=== PATIENT | male | born 1960 | race Caucasian/White ===

== ENCOUNTER 2018-05-08 08:32 | Inpatient (IN) | payer BC ==
[2018-05-08] MEDS ORDERED: ACETAMINOPHEN 1000 MG/100 ML VIAL (NON FORMULARY) IVPB ONE (08:47)
[2018-05-08] MEDS ORDERED: SODIUM CHLORIDE 1,000 ML IV STA (08:47)
[2018-05-08] MEDS ORDERED: ONDANSETRON 4 MG/2 ML VIAL IVPB ONE ×2 (08:48→12:44)
--- NOTE | 2018-05-08 08:48 | PDOC ---
History of Present Illness - General Chief Complaint: Pain Stated Complaint: ABD PAIN Time Seen by Provider: 05/08/18 08:42 - History of Present Illness Initial Comments: 05/08/18 08:47 57 yo M with no significant pmh who p/w LLQ abdominal pain. Patient with acute onset of crampy, unremitting, non radiating, severe LLQ abdominal pain beginning at 0700 AM (05/08/18) following BM. Denies BPR. No identifiable triggers or alleviators. Endorses two episodes of non-bilious, non bloody emesis. Milk of Magnesia with no relief in symptoms. Patient denies F,C, CP, SOB, urinary complaints, hematuria, diarrhea, constipation, lightheadedness, weakness, sensory changes. PMHx: as noted above. Denies h/o abdominal surgery. ROS: as noted SHx: Denies tobacco, IVDA. Social Etoh. Allergies: NKDA Past History - Past Medical History Allergies/Adverse Reactions: Allergies Allergy/AdvReac Type Severity Reaction Status Date / Time No Known Allergies Allergy Verified 05/08/18 08:34 Home Medications: Ambulatory Orders Ibuprofen [Motrin -] 600 mg PO QID PRN #20 tablet 05/08/18 Ondansetron [Zofran Odt -] 4 mg SL TID PRN #9 od.tablet 05/08/18 Oxycodone HCl 10 mg PO QID PRN #12 tablet MDD 4 05/08/18 COPD: No DVT: No - Suicide/Smoking/Psychosocial Hx Smoking History: Never smoked Information on smoking cessation initiated: No Hx Alcohol Use: No Drug/Substance Use Hx: No Substance Use Type: None Review of Systems - Review of Systems Comments:: 05/08/18 09:18 GENERAL/CONSTITUTIONAL: No fever or chills. No weakness. HEAD, EYES, EARS, NOSE AND THROAT: No change in vision. No ear pain or discharge. No sore throat. CARDIOVASCULAR: No chest pain or shortness of breath RESPIRATORY: No cough, wheezing, or hemoptysis. GASTROINTESTINAL: + abdominal pain and nausea, vomitin. No diarrhea or constipation. GENITOURINARY: No dysuria, frequency, or change in urination. MUSCULOSKELETAL: No joint or muscle swelling or pain. No neck or back pain. SKIN: No rash NEUROLOGIC: No headache, vertigo, loss of consciousness, or change in strength/ sensation. ENDOCRINE: No increased thirst. No abnormal weight change HEMATOLOGIC/LYMPHATIC: No anemia, easy bleeding, or history of blood clots. ALLERGIC/IMMUNOLOGIC: No hives or skin allergy. *Physical Exam - Vital Signs Last Vital Signs Temp Pulse Resp BP Pulse Ox 98.0 F 69 18 154/90 100 05/08/18 08:35 05/08/18 08:35 05/08/18 08:35 05/08/18 08:35 05/08/18 08:35 - Physical Exam Comments: 05/08/18 09:18 GENERAL: Awake, alert, and fully oriented, in no acute distress HEAD: No signs of trauma, normocephalic, atraumatic EYES: PERRLA, EOMI, sclera anicteric, conjunctiva clear ENT: Hearing grossly normal, nares patent, oropharynx clear without exudates. Moist mucosa NECK: Normal ROM, supple, no lymphadenopathy, JVD, or masses LUNGS: No distress, speaks full sentences, clear to auscultation bilaterally HEART: Regular rate and rhythm, normal S1 and S2, no murmurs, rubs or gallops, peripheral pulses normal and equal bilaterally. ABDOMEN: + LLQ ttp. Soft, normoactive bowel sounds. No guarding, no rebound. No masses EXTREMITIES : Normal inspection, Normal range of motion, no edema. No clubbing or cyanosis. SKIN: Warm, Dry, normal turgor, no rashes or lesions noted ED Treatment Course - LABORATORY CBC & Chemistry Diagram: 05/08/18 08:52 05/08/18 08:52 Medical Decision Making - Medical Decision Making 05/08/18 09:10 57 yo M with no significant pmh who p/w LLQ abdominal pain. VSS, AF, + LLQ ttp. Will consider diverictulitis, colitis, cystitis, nephrolithiasis. Low suspicion SBO, AAA, Ao dissection. ED Course: CBC,CMP, UA Tylenol 1000 mg, NS 1 L, Morphine 4 mg, Zofran 4 mg 05/08/18 10:40 Bedside U/S with left sided moderate hydronephrosis. 05/08/18 10:41 UA: 1 + Blood, 28 RBC CBC,CMP: Unremarkable Patient vomiting medication (Oxycodone) 05/08/18 15:14 CT AP: 5 mm obstructing calculus at left UVJ Contacted Dr. [facility] automotive professional answering service. Awaiting call back. 05/08/18 16:[address] Thomson, and agrees with admission. Kayla Lora g. 05/08/18 16:42 Patient to be admitted to med/surg. 05/08/18 17:[address] Corley Med/surg. *DC/Admit/Observation/Transfer Diagnosis at time of Disposition: Calculus of left kidney - Discharge Dispostion Condition at time of disposition: Stable Decision to Admit order: Yes - Prescriptions - Referrals - Patient Instructions - Post Discharge Activity - Attestations Physician Attestion: 05/08/18 09:19 I attest to the information provided in this note.
[2018-05-08] MEDS ORDERED: ACETAMINOPHEN INJECTION 100 ML IVPB ONE (08:49)
[2018-05-08] MEDS ORDERED: ONDANSETRON 4 MG/2 ML VIAL ONE ×3 (08:49→17:22)
[2018-05-08] MEDS ORDERED: morphine SULFATE 4 MG/ML VIAL ONE (08:57)
[2018-05-08 09:00] LABS: BASO % 1.2 % (0-2.0); EOS % 1.6 % (0-4.5); HEMATOCRIT 46.5 % (35.4-49); HEMOGLOBIN 15.8 GM/dL (11.7-16.9); LYMPH % 25.3 % (8-40); MCH 30.2 pg (25.7-33.7); MEAN PLT VOLUME 9.2 fl (7.5-11.1); MONO % 5.7 % (3.8-10.2); NEUT % 66.2 % (42.8-82.8); PLATELET COUNT 240 K/MM3 (134-434); RBC 5.23 M/mm3 (4.00-5.60); RDW 13.1 % (11.9-15.9); WHITE BLOOD COUNT 5.5 K/mm3 (4.0-10.0)
[2018-05-08] MEDS ORDERED: KETOROLAC TROMETHAMINE 15 MG/ML VIAL IVPUSH ONE (09:05)
--- NOTE | 2018-05-08 09:05 | PDOC ---
Attending Attestation - HPI HPI: Noah Braxton is a 57-year-old male with no reported past medical history presents to the emergency department with abdominal pain since earlier today. The patient presents with localized pain to the LLQ, accompanied by nausea and emesis 2x. Patients significant other at bedside states patient had suspicious food intake at a birthday libertarian last night. ROS is positive for Nausea, vomiting, fever. ROS negative for prior similar incident Diarrhea, hematemesis, melena, hematochezia. Surgical history: Back and Knee Surgery. PCP: Keegan Chiang. - Physicial Exam PE: 05/08/18 10:25 NAD, well appearing, dry mucus membranes, nl conjunctiva, anicteric; neck supple. lungs clear, RRR, abdomen soft, +LLQ tenderness, mild Left CVAT. ROJAS x4 , no focal neuro deficits. No peripheral edema. normal color for ethnicity, WWP. - Medical Decision Making 05/08/18 10:26 Documentation prepared by Vicki Ennis, acting as esthetician and manager medical spa for Dana Terry MD. <Vicki Ennis - Last Filed: 05/08/18 10:21> - Resident Resident Name: Lew Hou - ED Attending Attestation I have performed the following: I have examined & evaluated the patient, The case was reviewed & discussed with the resident, I agree w/resident's findings & plan - Medical Decision Making 05/08/18 10:14 Coleen 57 yo M with no significant pmh who p/w LLQ abdominal pain. Patient with acute onset of crampy, severe flank and LLQ abdominal pain beginning at 0700 AM this morning, a/w n/v. No f/c, urinary sx or hematuria or testicular pain. + suspicious food intake yesterday at birthday libertarian. DDx abdominal pain: biliary colic, renal colic, GERD, PUD, esophageal spasm, pancreatitis, hepatitis, colitis, food poisoning/gastroenteritis, hernia, appendicitis, diverticulitis Vital signs reviewed, wnl. no fever laboratory results and imaging reviewed, basic labs and lytes wnl, notable for normal wbc ct and Cr, UA with +RBCs, c/w passing stone. no infection on UA, no abx indicated.. EKG normal sinus rhythm, no interval abnormalities, narrow QRS, ST and T wave segments and morphology normal. ED course: POCUS renal with mild left hydronephrosis, right urinary jet, left jet not visualized. findings c/w first time renal colic/ureterolithiasis presentation. given toradol, tylenol, morphine, antiemetics and IVF. CT qiana, first time kidney stone, also r/o alternative intra abdominal etiology /pathology such as diverticulitis/colitis. CT renal with left hydro and 5mm obstructing UVJ stone. no other intra abdominal pathology. multiple nephrolithiasis present. attempts at oral meds, unable to tolerate. urology cs with Dr. Barksdale, given obstructive findings, admit for close monitoring. pt and family made aware, agreeable. Dispo: admit for ureterolithiasis, pain control, hydration as unable to victoriano PO without difficulty. urology cs called, to follow. 05/08/18 16:46 05/08/18 16:48 <Dana Terry - Last Filed: 05/08/18 16:49> Procedures - Bedside Ultrasound Remarks: 05/08/18 10:18 POCUS renal exam performed, indication includes abdominal/flank pain. views obtained: bilateral kidneys in short and long axis, bladder. findings: +mild left hydronephrosis; normal right kidney w/o hydronephrosis. bladder full with right ureteral jet. no left ureteral jet visualized.. Impression: +mild left hydronephrosis. 05/08/18 16:46 <Dana Terry - Last Filed: 05/08/18 16:49>
[2018-05-08] MEDS ORDERED: KETOROLAC TROMETHAMINE 15 MG/ML VIAL ONE (09:09)
[2018-05-08] MEDS ORDERED: morphine CARPU-JECT 4 MG/1 ML DISP.SYRIN IVPUSH ONE ×2 (09:09→13:57)
[2018-05-08 09:35] LABS: ALBUMIN 4.3 g/dl (3.4-5.0); ALK PHOS 91 U/L (45-117); ANION GAP 11 MMOL/L (8-16); BILIRUBIN,TOTAL 0.7 mg/dL (0.2-1); BLOOD UREA NITROGEN 24 mg/dL (7-18); CALCIUM 9.8 mg/dL (8.5-10.1); CHLORIDE 101 mmol/L (98-107); CO2 26 mmol/L (21-32); CREATININE 1.1 mg/dL (0.55-1.3); GLUCOSE,RANDOM 150 mg/dL (74-106); POTASSIUM 4.3 mmol/L (3.5-5.1); SGOT/AST 30 U/L (15-37); SGPT/ALT 31 U/L (13-61); SODIUM 138 mmol/L (136-145)
[2018-05-08 10:00] LABS: URINE APPEARANCE CLEAR; URINE BILIRUBIN NEGATIVE (<2.0 mg/dL); URINE COLOR YELLOW; URINE GLUCOSE (UA) NEGATIVE (NEGATIVE); URINE KETONE NEGATIVE (NEGATIVE); URINE LEUK ESTERASE NEGATIVE (NEGATIVE); URINE NITRITE NEGATIVE (NEGATIVE); URINE PROTEIN NEGATIVE (NEGATIVE); URINE UROBILINOGEN NEGATIVE mg/dL (0.2-1.0)
[2018-05-08] MEDS ORDERED: oxyCODONE HCL 5 MG TABLET PO ONE (12:44)
[2018-05-08] MEDS ORDERED: oxyCODONE HCL 10 MG SUSTAINED ACTING TABLET ONE (13:19)
[2018-05-08] MEDS ORDERED: MORPHINE SULFATE 10 MG/1 ML *VIAL ONE (14:09)
[2018-05-08] MEDS ORDERED: CEFTRIAXONE 1 GM/50 ML BAG ONE (16:31)
[2018-05-08] MEDS ORDERED: ONDANSETRON 4 MG/2 ML VIAL IVPUSH ONE (17:15)
[2018-05-08] MEDS ORDERED: morphine CARPU-JECT 2 MG/1 ML DISP.SYRIN IVPUSH ONE (17:15)
[2018-05-08] MEDS ORDERED: MORPHINE SULFATE 2 MG/ML VIAL ONE (17:21)
[2018-05-08] MEDS ORDERED: ACETAMINOPHEN 1000 MG/100 ML VIAL (NON FORMULARY) IVPB PRN (18:00)
[2018-05-08] MEDS ORDERED: morphine CARPU-JECT 4 MG/1 ML DISP.SYRIN IVPUSH PRN (18:01)
[2018-05-08] MEDS ORDERED: MORPHINE SULFATE 2 MG/ML VIAL IVPUSH PRN (18:02)
--- NOTE | 2018-05-08 19:28 | HP ---
CHIEF COMPLAINT: Left flank and LLQ pain PCP: Dr. Keegan Carr HISTORY OF PRESENT ILLNESS: 57 year-old male with no significant reported PMH presented to the ED with LLQ pain since earlier in the day. Patient reported associated nausea and vomiting x 2, and subjective fever. ER course was notable for: (1) UA: 28 RBCs (2) CTAP: 5mm obstructing calculus left UVJ Recent Travel: No PAST MEDICAL HISTORY: None reported PAST SURGICAL HISTORY: Lumbar herniated disc repair 1985 Bilateral knee arthroscopy 2008 Partial thyroidectomy as child Social History: Smoking: no Alcohol: no Drugs: no Family History: Allergies No Known Allergies Allergy (Verified 05/08/18 08:34) HOME MEDICATIONS: Home Medications Medication Instructions Recorded Ibuprofen [Motrin -] 600 mg PO QID PRN #20 tablet 05/08/18 Ondansetron [Zofran Odt -] 4 mg SL TID PRN #9 od.tablet 05/08/18 Oxycodone HCl 10 mg PO QID PRN #12 tablet MDD 4 05/08/18 REVIEW OF SYSTEMS CONSTITUTIONAL: +fever Absent: fever, chills, diaphoresis, generalized weakness, malaise, loss of appetite, weight change HEENT: Absent: rhinorrhea, nasal congestion, throat pain, throat swelling, difficulty swallowing, mouth swelling, ear pain, eye pain, visual changes CARDIOVASCULAR: Absent: chest pain, syncope, palpitations, irregular heart rate, lightheadedness , peripheral edema RESPIRATORY: Absent: cough, shortness of breath, dyspnea with exertion, orthopnea, wheezing, stridor, hemoptysis GASTROINTESTINAL: +nausea, vomiting Absent: abdominal pain, abdominal distension, nausea, vomiting, diarrhea, constipation, melena, hematochezia GENITOURINARY: +left flank and LLQ pain Absent: dysuria, frequency, urgency, hesitancy, hematuria, genital pain MUSCULOSKELETAL: Absent: myalgia, arthralgia, joint swelling, back pain, neck pain SKIN: Absent: rash, itching, pallor HEMATOLOGIC/IMMUNOLOGIC: Absent: easy bleeding, easy bruising, lymphadenopathy, frequent infections ENDOCRINE: Absent: unexplained weight gain, unexplained weight loss, heat intolerance, cold intolerance NEUROLOGIC: Absent: headache, focal weakness or paresthesias, dizziness, unsteady gait, seizure, mental status changes, bladder or bowel incontinence PSYCHIATRIC: Absent: anxiety, depression, suicidal or homicidal ideation, hallucinations. PHYSICAL EXAMINATION Vital Signs - 24 hr 05/08/18 05/08/18 05/08/18 08:35 15:48 18:06 Temperature 98.0 F 98.1 F Pulse Rate 69 Pulse Rate [ 83 97 H Apical] Respiratory 18 18 18 Rate Blood Pressure 154/90 Blood Pressure 142/93 132/87 [Left Arm] O2 Sat by Pulse 100 99 98 Oximetry (%) GENERAL: Awake, alert, and fully oriented, in mild distress secondary to left flank and LLQ pain. HEAD: Normal with no signs of trauma. EYES: Pupils equal, round and reactive to light, extraocular movements intact, sclera anicteric, conjunctiva clear. No lid lag. EARS, NOSE, THROAT: Ears normal, nares patent, oropharynx clear without exudates. Moist mucous membranes. NECK: Normal range of motion, supple without lymphadenopathy, JVD, or masses. LUNGS: Breath sounds equal, clear to auscultation bilaterally. No wheezes, and no crackles. No accessory muscle use. HEART: Regular rate and rhythm, S1 and S2 ABDOMEN: Soft, LLQ tenderness, not distended, no guarding, no rebound MUSCULOSKELETAL: Normal range of motion at all joints. No bony deformities or tenderness. No CVA tenderness. UPPER EXTREMITIES: 2+ pulses, warm, well-perfused. No cyanosis. No clubbing. No peripheral edema. LOWER EXTREMITIES: 2+ pulses, warm, well-perfused. No calf tenderness. No peripheral edema. NEUROLOGICAL: Cranial nerves II-XII intact. Normal speech. Laboratory Results - last 24 hr 05/08/18 05/08/18 05/08/18 08:52 08:52 08:52 WBC 5.5 RBC 5.23 Hgb 15.8 Hct 46.5 MCV 89.0 MCH 30.2 MCHC 34.0 RDW 13.1 Plt Count 240 MPV 9.2 Absolute Neuts (auto) 3.6 Neutrophils % 66.2 Lymphocytes % 25.3 Monocytes % 5.7 Eosinophils % 1.6 Basophils % 1.2 Nucleated RBC % 0 Sodium 138 Potassium 4.3 Chloride 101 Carbon Dioxide 26 Anion Gap 11 BUN 24 H Creatinine 1.1 Creat Clearance w eGFR > 60 Random Glucose 150 H Calcium 9.8 Total Bilirubin 0.7 AST 30 ALT 31 Alkaline Phosphatase 91 Total Protein 8.0 Albumin 4.3 Urine Color Yellow Urine Appearance Clear Urine pH 6.0 Ur Specific [place] 1.019 Urine Protein Negative Urine Glucose (UA) Negative Urine Ketones Negative Urine Blood 1+ H Urine Nitrite Negative Urine Bilirubin Negative Urine Urobilinogen Negative Ur Leukocyte Esterase Negative Urine WBC (Auto) 1 Urine RBC (Auto) 28 ASSESSMENT/PLAN: 57 year-old male with no significant reported PMH admitted for obstructing calculus left UVJ. Obstructing calculus left UVJ --seen on CT imaging --urology consult placed --NPO after midnight --IV tylenol, ketoralac, dilaudid PRN FEN Fluids: NS @ 125mL Electrolytes: replete as indicated Nutrition: NPO after midnight DVT prophylaxis: SCDs only in case of procedure. Dispo: requires inpatient care. Full code. Visit type - Emergency Visit Emergency Visit: Yes ED Registration Date: 05/08/18 Care time: The patient presented to the Emergency Department on the above date and was hospitalized for further evaluation of their emergent condition. - New Patient This patient is new to me today: Yes Date on this admission: 05/10/18 - Critical Care Critical Care patient: No Hospitalist Screening - Colonoscopy Questionnaire Colonoscopy Questionnaire: Colonoscopy Questionnaire - Patient: 50 - 75 years old and never had a screening colonoscopy: Unknown History of colon or rectal polyps, or CA: No History of IBD, Crohn's disease or UC: No History of abdominal radiation therapy as a child: No - Relative: 1 with colon or rectal CA, or polyps at age 60 or younger: Unknown Colon or rectal CA diagnosed at age 45 or younger: Unknown Multiple relatives with colon or rectal CA: Unknown - Outcome: Screening Result: Negative Screen
[2018-05-08] MEDS: SODIUM CHLORIDE 1,000 ML IV SCH ×2 (19:48→20:21)
[2018-05-08] MEDS ORDERED: ONDANSETRON 4 MG/2 ML VIAL IVPUSH PRN (20:05)
[2018-05-08] MEDS ORDERED: HYDROmorphone HCl 2 MG/ML VIAL IVPB PRN (20:09)
[2018-05-08] MEDS: KETOROLAC TROMETHAMINE 30 MG/1 ML VIAL IVPUSH PRN (20:21)
--- NOTE | 2018-05-08 23:14 | EKG ---
Test Reason : Blood Pressure : / mmHG Vent. Rate : 070 BPM Atrial Rate : 070 BPM P-R Int : 160 ms QRS Dur : 104 ms QT Int : 412 ms P-R-T Axes : 077 072 074 degrees QTc Int : 444 ms NORMAL SINUS RHYTHM POSSIBLE LEFT ATRIAL ENLARGEMENT INCOMPLETE RIGHT BUNDLE BRANCH BLOCK LEFT VENTRICULAR HYPERTROPHY ABNORMAL ECG NO PREVIOUS ECGS AVAILABLE Confirmed by YONNY CLEVELAND MD ([id number]) on 05/08/2018 11:13:55 PM Referred By: Confirmed By:YONNY CLEVELAND MD
[2018-05-09 08:26] LABS: BASO % 0.5 % (0-2.0); EOS % 0.5 % (0-4.5); HEMATOCRIT 40.1 % (35.4-49); HEMOGLOBIN 13.4 GM/dL (11.7-16.9); LYMPH % 12.5 % (8-40); MCH 29.8 pg (25.7-33.7); MCHC 33.4 g/dl (32.0-35.9); MEAN CELL VOLUME 89.1 fl (80-96); MEAN PLT VOLUME 9.5 fl (7.5-11.1); MONO % 6.7 % (3.8-10.2); NEUT % 79.8 % (42.8-82.8); PLATELET COUNT 175 K/MM3 (134-434); RDW 12.8 % (11.9-15.9); WHITE BLOOD COUNT 8.3 K/mm3 (4.0-10.0)
--- NOTE | 2018-05-09 09:20 | CON.GU ---
Consult Consult Specialty:: Referred by:: Medicine Reason for Consultation:: ureteral stone, renal colic - History of Present Illness Chief Complaint: ureteral stone, renal colic History of Present Illness: patient is a 57 year old male with one day of renal colic on the left side. nausea and vomiting. No fever. First episode. No other history . No family history. He works in construction - History Source History Provided By: Patient - Past Medical History Renal/: No: Renal Failure, Renal Inusuff, BPH, Cancer, Hematuria, Hemodialysis , Neurogenic Bladder, Renal Calculi, UTI, Other - Alcohol/Substance Use Hx Alcohol Use: No - Smoking History Smoking history: Never smoked Home Medications - Allergies Allergies/Adverse Reactions: Allergies Allergy/AdvReac Type Severity Reaction Status Date / Time No Known Allergies Allergy Verified 05/08/18 08:34 - Home Medications Home Medications: Ambulatory Orders Ibuprofen [Motrin -] 600 mg PO QID PRN #20 tablet 05/08/18 Ondansetron [Zofran Odt -] 4 mg SL TID PRN #9 od.tablet 05/08/18 Oxycodone HCl 10 mg PO QID PRN #12 tablet MDD 4 05/08/18 Review of Systems - Review of Systems Constitutional: denies: Fever Gastrointestinal: reports: Nausea, Vomiting Genitourinary: reports: Flank Pain, Frequency Physical Exam- Vital Signs: Vital Signs Temperature 98.2 F 05/09/18 09:00 Pulse Rate 66 05/09/18 09:00 Respiratory Rate 18 05/09/18 09:00 Blood Pressure 115/60 05/09/18 09:00 O2 Sat by Pulse Oximetry (%) 98 05/08/18 18:06 Constitutional: Yes: Well Nourished, No Distress, Calm HENT: Yes: WNL Cardiovascular: Yes: WNL Gastrointestinal: Yes: WNL Renal/: Yes: CVA Tenderness - Left. No: Bladder Distention, CVA Tenderness - Right, Beckman Present, Hematuria, Incontinence Labs: CBC, BMP 05/09/18 06:30 Imaging - Results Cat Scan: Report Reviewed Problem List - Problems (1) Calculus of distal left ureter Assessment/Plan: stone has a high likelihood of self passage with medical expulsive therapy. His pain is improved,. will continue fluids and flomax., KUB this morning. Reviewed options with patitent and his . These include continued medical expulsive therapy, ureteroscopy and ESWL. as the patient is feeling better and no signs of infection will continue with first option. regular diet. KUB, strain all urine consider discharge later today if patient remains comfortable and will schedule for outpatient follow up Dr. Barksdale [phone] Code(s): N20.1 - CALCULUS OF URETER (2) Hydronephrosis Code(s): N13.30 - UNSPECIFIED HYDRONEPHROSIS (3) Renal colic on left side Code(s): N23 - UNSPECIFIED RENAL COLIC
[2018-05-09 09:39] LABS: ALBUMIN 3.1 g/dl (3.4-5.0); ALK PHOS 63 U/L (45-117); ANION GAP 10 MMOL/L (8-16); BLOOD UREA NITROGEN 23 mg/dL (7-18); CALCIUM 8.2 mg/dL (8.5-10.1); CHLORIDE 104 mmol/L (98-107); CO2 25 mmol/L (21-32); CREATININE 1.6 mg/dL (0.55-1.3); GLUCOSE,RANDOM 86 mg/dL (74-106); MAGNESIUM 1.9 mg/dL (1.8-2.4); POTASSIUM 4.2 mmol/L (3.5-5.1); SGOT/AST 22 U/L (15-37); SGPT/ALT 20 U/L (13-61); SODIUM 139 mmol/L (136-145)
[2018-05-09] MEDS: SODIUM CHLORIDE 1,000 ML IV SCH ×3 (12:08→22:15)
[2018-05-09] MEDS: TAMSULOSIN HCL 0.4 MG CAP.ER.24H (FP) PO SCH (14:21)
[2018-05-09] MEDS: KETOROLAC TROMETHAMINE 30 MG/1 ML VIAL IVPUSH PRN ×2 (14:24→20:47)
--- NOTE | 2018-05-09 15:07 | PN ---
Physical Exam: SUBJECTIVE: Patient seen and examined at bedside. Has diffuse upper abdominal pain. OBJECTIVE: Vital Signs Period Temp Pulse Resp BP Sys/Avendano Pulse Ox Last 24 Hr 98.1 F-98.5 F 66-97 18-20 115-149/60-93 98-99 GENERAL: The patient is awake, alert, and fully oriented, in no acute distress. LUNGS: CTA HEART: Regular rate and rhythm, S1, S2 ABDOMEN: Left CVA tenderness EXTREMITIES: 2+ pulses, warm, well-perfused, no edema. NEUROLOGICAL: Cranial nerves II through XII grossly intact. Laboratory Results - last 24 hr 05/09/18 05/09/18 05/09/18 06:30 06:30 06:30 WBC 8.3 RBC 4.50 Hgb 13.4 Hct 40.1 MCV 89.1 MCH 29.8 MCHC 33.4 RDW 12.8 Plt Count 175 D MPV 9.5 Absolute Neuts (auto) 6.6 Neutrophils % 79.8 D Lymphocytes % 12.5 D Monocytes % 6.7 Eosinophils % 0.5 Basophils % 0.5 Nucleated RBC % 0 Sodium 139 Potassium 4.2 Chloride 104 Carbon Dioxide 25 Anion Gap 10 BUN 23 H Creatinine 1.6 H Creat Clearance w eGFR 44.62 Random Glucose 86 Calcium 8.2 L Magnesium 1.9 Total Bilirubin 1.0 AST 22 ALT 20 Alkaline Phosphatase 63 Total Protein 6.0 L Albumin 3.1 L Blood Type B POSITIVE Antibody Screen Negative 05/09/18 10:04 WBC RBC Hgb Hct MCV MCH MCHC RDW Plt Count MPV Absolute Neuts (auto) Neutrophils % Lymphocytes % Monocytes % Eosinophils % Basophils % Nucleated RBC % Sodium Potassium Chloride Carbon Dioxide Anion Gap BUN Creatinine Creat Clearance w eGFR Random Glucose Calcium Magnesium Total Bilirubin AST ALT Alkaline Phosphatase Total Protein Albumin Blood Type B POSITIVE Antibody Screen Active Medications Generic Name Dose Route Start Last Admin Trade Name Freq PRN Reason Stop Dose Admin Acetaminophen 1,000 mg 05/08/18 18:00 05/09/18 08:46 Ofirmev Injection - IVPB 1,000 mg Q6H PRN Administration PAIN LEVEL 1-5 Hydromorphone HCl 2 mg 05/08/18 20:09 Dilaudid Vial - IVPB Q4H PRN PAIN LEVEL 4 - 6 Sodium Chloride 1,000 mls @ 125 mls/hr 05/08/18 18:00 05/09/18 12:08 Normal Saline - IV 125 mls/hr ASDIR MARGAUX Administration Ketorolac Tromethamine 30 mg 05/08/18 20:08 05/09/18 14:24 Toradol Injection - IVPUSH 05/13/18 20:07 30 mg Q6H PRN Administration PAIN LEVEL 1 - 3 Morphine Sulfate 2 mg 05/08/18 18:02 Morphine Sulfate IVPUSH Q4H PRN PAIN LEVEL 6-10 Ondansetron HCl 4 mg 05/08/18 20:05 Zofran Injection IVPUSH Q6H PRN NAUSEA Tamsulosin HCl 0.4 mg 05/09/18 13:30 05/09/18 14:21 Flomax - PO 0.4 mg DAILY@0830 [facility] Administration ASSESSMENT/PLAN 57 year-old male with no significant reported PMH admitted for obstructing calculus left UVJ. Obstructing calculus left UVJ --seen on CT imaging and again today on flat and lateral --urology consult: will try medical management to see if stone passes --Cr bumped 1.1-->1.6, closely monitor --NPO after midnight --IV tylenol, ketoralac, dilaudid PRN Mild ileus --flat and lateral views show mild ileus pattern with no air-fluid levels, no free air or bowel obstruction FEN Fluids: NS @ 125mL Electrolytes: replete as indicated Nutrition: NPO after midnight DVT prophylaxis: SCDs only in case of procedure. Dispo: requires inpatient care. Full code. Visit type - Emergency Visit Emergency Visit: Yes ED Registration Date: 05/08/18 Care time: The patient presented to the Emergency Department on the above date and was hospitalized for further evaluation of their emergent condition. - New Patient This patient is new to me today: No - Critical Care Critical Care patient: No
[2018-05-10] MEDS: SODIUM CHLORIDE 1,000 ML IV SCH ×2 (06:28→15:20)
[2018-05-10 07:20] LABS: ALBUMIN 2.7 g/dl (3.4-5.0); ALK PHOS 52 U/L (45-117); ANION GAP 9 MMOL/L (8-16); BILIRUBIN,TOTAL 0.8 mg/dL (0.2-1); BLOOD UREA NITROGEN 20 mg/dL (7-18); CALCIUM 7.8 mg/dL (8.5-10.1); CHLORIDE 108 mmol/L (98-107); CO2 25 mmol/L (21-32); CREATININE 1.2 mg/dL (0.55-1.3); GLUCOSE,RANDOM 87 mg/dL (74-106); MAGNESIUM 1.9 mg/dL (1.8-2.4); POTASSIUM 4.1 mmol/L (3.5-5.1); SGOT/AST 16 U/L (15-37); SGPT/ALT 17 U/L (13-61); SODIUM 141 mmol/L (136-145); TOT PROT 5.3 g/dl (6.4-8.2)
[2018-05-10 07:46] LABS: BASO % 0.4 % (0-2.0); EOS % 0.7 % (0-4.5); HEMATOCRIT 36.5 % (35.4-49); HEMOGLOBIN 12.2 GM/dL (11.7-16.9); LYMPH % 16.5 % (8-40); MCH 29.8 pg (25.7-33.7); MCHC 33.4 g/dl (32.0-35.9); MEAN CELL VOLUME 89.3 fl (80-96); MEAN PLT VOLUME 9.6 fl (7.5-11.1); MONO % 8.7 % (3.8-10.2); NEUT % 73.7 % (42.8-82.8); PLATELET COUNT 150 K/MM3 (134-434); RBC 4.09 M/mm3 (4.00-5.60); RDW 13.3 % (11.9-15.9); WHITE BLOOD COUNT 7.1 K/mm3 (4.0-10.0)
[2018-05-10] MEDS ORDERED: PT OWN MED DRAWER 7, Y5N ONE (08:27)
[2018-05-10] MEDS: TAMSULOSIN HCL 0.4 MG CAP.ER.24H (FP) PO SCH (08:56)
--- NOTE | 2018-05-10 11:07 | PN ---
Physical Exam: SUBJECTIVE: Patient seen and examined. Walking in hallway. Has not needed pain medication. OBJECTIVE: Vital Signs Period Temp Pulse Resp BP Sys/Avendano Pulse Ox Last 24 Hr 97.6 F-99.4 F 60-75 16-19 104-134/61-76 100 Laboratory Results - last 24 hr 05/09/18 05/10/18 05/10/18 10:04 06:00 06:00 WBC 7.1 RBC 4.09 Hgb 12.2 Hct 36.5 MCV 89.3 MCH 29.8 MCHC 33.4 RDW 13.3 Plt Count 150 MPV 9.6 Absolute Neuts (auto) 5.2 Neutrophils % 73.7 Lymphocytes % 16.5 D Monocytes % 8.7 Eosinophils % 0.7 Basophils % 0.4 Nucleated RBC % 0 Sodium 141 Potassium 4.1 Chloride 108 H Carbon Dioxide 25 Anion Gap 9 BUN 20 H Creatinine 1.2 Creat Clearance w eGFR > 60 Random Glucose 87 Calcium 7.8 L Magnesium 1.9 Total Bilirubin 0.8 AST 16 ALT 17 Alkaline Phosphatase 52 Total Protein 5.3 L Albumin 2.7 L Blood Type B POSITIVE Active Medications Generic Name Dose Route Start Last Admin Trade Name Freq PRN Reason Stop Dose Admin Acetaminophen 1,000 mg 05/08/18 18:00 05/09/18 08:46 Ofirmev Injection - IVPB 1,000 mg Q6H PRN Administration PAIN LEVEL 1-5 Hydromorphone HCl 2 mg 05/08/18 20:09 05/10/18 02:17 Dilaudid Vial - IVPB 2 mg Q4H PRN Administration PAIN LEVEL 4 - 6 Sodium Chloride 1,000 mls @ 125 mls/hr 05/08/18 18:00 05/10/18 06:28 Normal Saline - IV 125 mls/hr ASDIR MARGAUX Administration Ketorolac Tromethamine 30 mg 05/08/18 20:08 05/09/18 20:47 Toradol Injection - IVPUSH 05/13/18 20:07 30 mg Q6H PRN Administration PAIN LEVEL 1 - 3 Ondansetron HCl 4 mg 05/08/18 20:05 05/10/18 06:27 Zofran Injection IVPUSH 4 mg Q6H PRN Administration NAUSEA Tamsulosin HCl 0.4 mg 05/09/18 13:30 05/10/18 08:56 Flomax - PO 0.4 mg DAILY@0830 [facility] Administration ASSESSMENT/PLAN: Pain improved Repeat flat and lateral: stone still there? ileus? Cr 1.6-->1.2 If xray good, clears
[2018-05-10] MEDS: KETOROLAC TROMETHAMINE 30 MG/1 ML VIAL IVPUSH PRN (16:31)
--- NOTE | 2018-05-10 16:52 | DS ---
Physical Exam: SUBJECTIVE: Patient seen and examined. Patient seen and examined. Walking in hallway. Has not needed pain medication. OBJECTIVE: Vital Signs Period Temp Pulse Resp BP Sys/Avendano Pulse Ox Last 24 Hr 97.5 F-99.4 F 60-75 18-20 104-134/59-71 100 PHYSICAL EXAM GENERAL: The patient is awake, alert, and fully oriented, in no acute distress. HEAD: Normal with no signs of trauma. EYES: PERRL, extraocular movements intact, sclera anicteric, conjunctiva clear. ENT: Ears normal, nares patent, oropharynx clear without exudates, moist mucous membranes. NECK: Trachea midline, full range of motion, supple. LUNGS: Breath sounds equal, clear to auscultation bilaterally, no wheezes, no crackles, no accessory muscle use. HEART: Regular rate and rhythm, S1, S2 without murmur, rub or gallop. ABDOMEN: Soft, nontender, nondistended, normoactive bowel sounds, no guarding, no rebound, no hepatosplenomegaly, no masses. EXTREMITIES: 2+ pulses, warm, well-perfused, no edema. NEUROLOGICAL: Cranial nerves II through XII grossly intact. Normal speech, gait not observed. PSYCH: Normal mood, normal affect. SKIN: Warm, dry, normal turgor, no rashes or lesions noted. LABS Laboratory Results - last 24 hr 05/10/18 05/10/18 06:00 06:00 WBC 7.1 RBC 4.09 Hgb 12.2 Hct 36.5 MCV 89.3 MCH 29.8 MCHC 33.4 RDW 13.3 Plt Count 150 MPV 9.6 Absolute Neuts (auto) 5.2 Neutrophils % 73.7 Lymphocytes % 16.5 D Monocytes % 8.7 Eosinophils % 0.7 Basophils % 0.4 Nucleated RBC % 0 Sodium 141 Potassium 4.1 Chloride 108 H Carbon Dioxide 25 Anion Gap 9 BUN 20 H Creatinine 1.2 Creat Clearance w eGFR > 60 Random Glucose 87 Calcium 7.8 L Magnesium 1.9 Total Bilirubin 0.8 AST 16 ALT 17 Alkaline Phosphatase 52 Total Protein 5.3 L Albumin 2.7 L HOSPITAL COURSE: Date of Admission:05/08/18 Date of Discharge: 05/10/18 Pain improved Repeat flat and lateral: stone still there? ileus? Cr 1.6-->1.2 If xray good, clears Discharge Summary Reason For Visit: CALCULUS OF LEFT KIDNEY Current Active Problems Calculus of distal left ureter (Acute) Calculus of left kidney (Acute) Hydronephrosis (Acute) Renal colic on left side (Acute) Condition: Stable - Instructions Diet, Activity, Other Instructions: Please call Dr. Thomson's office to make a followup appointment. Three prescriptions have been sent to your pharmacy: tamsulosin, ketoralac, and Zofran. Take these medications as directed. Return to the emergency department for any new or worsening symptoms Referrals: Drake Barksdale MD [Staff Physician] - Disposition: HOME - Home Medications Comprehensive Discharge Medication List: Ambulatory Orders Ketorolac Tromethamine 10 mg PO Q6H #12 tablet 05/10/18 Ondansetron [Ondansetron Odt] 8 mg PO Q8H #9 tab.rapdis 05/10/18 Tamsulosin HCl [Flomax -] 0.4 mg PO DAILY@0830 #7 cap.er.24h 05/10/18
[2018-05-10 17:11] VITALS: BP 153/76; PULSE 75; TEMP 98.6
== END 2018-05-10 18:06 | disposition home or self-care (01) | DRG 694 ==
LOC: JER 08:32 → JERBED 16:38 → OBSVTOIN 17:31 → J8W 18:45
PROVIDERS: ADMIT Hospitalist; ATTEND Nurse Practitioner Acute Care
DX: N13.2 Hydronephrosis with renal and ureteral calculous obstruction (principal); K56.7 Ileus, unspecified; R10.32 Left lower quadrant pain
CPT/HCPCS: 36415; 71045-TC-FY; 74018-TC-FY; 74176-TC; 74190-TC-FY; 80053; 81003; 81015; 83735; 85025; 86850; 86900; 86901; 93005; 93010; 99283-25; G0378; J0131; J7030